=== PATIENT | female | born 1955 | race Caucasian/White ===

== ENCOUNTER 2018-04-16 06:18 | Emergency (ER) | payer OTHER ==
[~2018-04-16] VITALS: Ht 162.6 cm; Wt 76.2 kg
--- NOTE | 2018-04-16 06:29 | ED SKIN/ALLERGY COMPLAINT ---
History of Present Illness General Chief Complaint: Allergy Symptoms Stated Complaint: FACIAL SWELLING/SOB Source: patient, family, old records Exam Limitations: no limitations Vital Signs & Intake/Output Vital Signs & Intake/Output Vital Signs Date Time Temp Pulse Resp B/P B/P Pulse O2 O2 Flow FiO2 Mean Ox Delivery Rate 04/16 825 98.5 78 17 124/59 97 Room Air 04/16 625 98.5 85 18 130/70 99 Room Air Allergies Coded Allergies: Sulfa (Sulfonamide Antibiotics) (UNKNOWN 04/16/18) Triage Nurses Notes Reviewed? yes Onset: 3 days Duration: day(s):, changing over time, continues in ED, intermittent Timing: recent history Severity: moderate Location: face Possible Factors: medications Modifying Factors: Improves With: antihistamine. Associated Symptoms: change in skin texture, edema, rash LMP (ages 10-50): post menopausal : No Patient currently breastfeeds: No HPI: 3 days prior to admission patient complains of intermittent upper and lower lip swelling improved with Benadryl. Prior to admission she woke with worsening swelling with difficulty swallowing. She denies fever chills nausea vomiting diarrhea abdominal pain chest pain shortness breath headache dysuria rash bleeding who soap shampoo detergent medication foods. Over the weekend or esophagus replaced in the well water and they mulched their Gardens that has an aroma. (Arcadio Irizarry MD) Reconcile Medications Famotidine (Pepcid) 20 MG TABLET 1 TAB PO BID allergy Prednisone 20 MG TABLET 1 TAB PO BID allergy Venlafaxine HCl (Venlafaxine HCl ER) 150 MG CAP.ER.24H 1 CAP PO DAILY MENTAL HEALTH (Reported) (Lalito Kerr DO) Past History Travel History Traveled to [place] past 21 day No Medical History Any Pertinent Medical History? see below for history Respiratory: REACTIVE AIRWAY DISEASE Musculoskeletal: osteoarthritis Psychiatric: depression Surgical History Surgical History: non-contributory Psychosocial History What is your primary language Greek Tobacco Use: Never used ETOH Use: occasional use Illicit Drug Use: denies illicit drug use Family History Hx Contributory? No (Arcadio Irizarry MD) Review of Systems Review of Systems Constitutional: Reports: no symptoms. EENTM: Reports: see HPI, throat swelling. Respiratory: Reports: no symptoms. Cardiovascular: Reports: no symptoms. GI: Reports: no symptoms. Genitourinary: Reports: no symptoms. Musculoskeletal: Reports: no symptoms. Skin: Reports: no symptoms. Neurological/Psychological: Reports: no symptoms. Hematologic/Endocrine: Reports: no symptoms. Immunologic/Allergic: Reports: no symptoms. All Other Systems: Reviewed and Negative (Arcadio Irizarry MD) Physical Exam Physical Exam General Appearance: well developed/nourished, alert, awake, anxious, mild distress Head: atraumatic, swelling (lip) Eyes: Bilateral: normal appearance, PERRL, EOMI. Ears, Nose, Throat: normal ENT inspection, hearing grossly normal, mild tongue enlargement Neck: normal inspection, supple, full range of motion, no midline tenderness Respiratory: normal breath sounds, chest non-tender, no respiratory distress, quiet respiration Cardiovascular: regular rate/rhythm, normal peripheral pulses, norml femoral pulses equa Peripheral Pulses: 4+ carotid (R), 4+ carotid (L) Gastrointestinal: normal bowel sounds, soft, non-tender, no organomegaly Back: normal inspection, normal range of motion, no vertebral tenderness Extremities: normal inspection, normal capillary refill, normal range of motion, no edema, no ligament instability Neurologic/Psych: no motor/sensory deficits, awake, alert, oriented x 3, normal gait, normal mood/affect, land manager II-XII nml as tested Reflexes: 2+: bicep (R), bicep (L). Skin: intact, normal color Skin Problem Location: face Skin Problem Character: angioedema of lips Lymphatic: no anterior cervical asim (Arcadio Irizarry MD) Progress Differential Diagnosis: abscess/cellulitis, allergic reaction, angioedema, contact dermatitis, drug reaction Plan of Care: Attending addendum by Dr. Kerr at 0900 hrs.: I assumed care from Dr. Irizarry at 0700 hrs. today while awaiting clinical improvement. The patient had been given diphenhydramine and famotidine as well as steroids. At the time of my assumption of care we're awaiting clinical improvement and monitoring for any worsening. During the 2 period of my observation, she continued to improve, and there is no worsening in her syndrome. Specifically, she had no development of respiratory difficulties or airway symptoms whatsoever. The plan as laid out previously was for her to return home with a steroid prescription and follow-up with her primary doctor later this week to discuss her Effexor and whether another medication might be better tolerated. I did call and discuss her case with the on-call primary care physician from her practice with Dr. Nielson, and they agree with this disposition. They will assure close follow-up this week. The patient and her understand the need to return to the emergency department with any new or worsening symptoms whatsoever. Hand-Off Endorsed To: Lalito Kerr DO Endorsed Time: 0700 Pending: consult (Dr. Nielson for effexor substitu), other (clinical improvement ) (Arcadio Irizarry MD) Plan of Care: Attending addendum by Dr. Kerr at 0900 hrs.: I assumed care from Dr. Irizarry at 0700 hrs. today while awaiting clinical improvement. The patient had been given diphenhydramine and famotidine as well as steroids. At the time of my assumption of care we're awaiting clinical improvement and monitoring for any worsening. During the 2 period of my observation, she continued to improve, and there is no worsening in her syndrome. Specifically, she had no development of respiratory difficulties or airway symptoms whatsoever. The plan as laid out previously was for her to return home with a steroid prescription and follow-up with her primary doctor later this week to discuss her Effexor and whether another medication might be better tolerated. I did call and discuss her case with the on-call primary care physician from her practice with Dr. Nielson, and they agree with this disposition. They will assure close follow-up this week. The patient and her understand the need to return to the emergency department with any new or worsening symptoms whatsoever. (Lalito Kerr DO) Departure Departure Disposition: HOME OR SELF CARE Condition: Stable Clinical Impression Primary Impression: Angioedema of lips Secondary Impressions: Adverse effects of medication Referrals: Naga VELOZ,Dario Morrow Additional Instructions: Benadry 1-2 tabs every 6 hours as needed for allergy / lip swelling. Stop Effexor. Departure Forms: Customer Survey General Discharge Information Prescriptions: Current Visit Scripts Prednisone 1 TAB PO BID #10 TAB Famotidine (Pepcid) 1 TAB PO BID #10 TAB (Arcadio Irizarry MD) Departure Time of Disposition: 852 (Lalito Kerr DO)
[2018-04-16] MEDS ORDERED: PREDNISONE20 M1 PO (06:58)
[2018-04-16] MEDS ORDERED: PEPCID20 M1 PO (06:58)
[2018-04-16 08:25] VITALS: BP 124/59
[2018-04-16] MEDS ORDERED: VENLAFAXINE HC150 MG PO (08:52)
[2018-04-16] MEDS ORDERED: TURMERIC538 MG PO (08:53)
[2018-04-16] MEDS ORDERED: VITAMIN D-32000 UNIT PO (08:53)
[2018-04-16] MEDS ORDERED: FLOVENT HFA12 G1 INH (08:54)
[2018-04-16] MEDS ORDERED: ZOMIG5 M2 PO (08:54)
[2018-04-16] MEDS ORDERED: PROAIR HFA8.5 GM INH (08:55)
[2018-04-16] MEDS ORDERED: ONE DAILY MULT1 EAC2 PO (08:55)
== END 2018-04-16 09:22 ==
LOC: ERH 06:18
DX: T50.901A Poisoning by unspecified drugs, medicaments and biological substances, accidental (unintentional), initial encounter (principal); T78.3XXA Angioneurotic edema, initial encounter
CPT/HCPCS: 96374; 96375; J1200; J2930